=== PATIENT | female | born 1955 | race Caucasian/White ===

== ENCOUNTER → 2017-06-22 13:02 | Outpatient (CLI) | payer MEDICARE, OTHER ==
[2013-04-12 12:29] VITALS: BMI 51.7
[~2017-06-22 13:02] MED LIST: ADVAIR 500/501 DISK; ASPIRIN 81 MG E81 MG; BYDUREON; ELAVIL10 MG; GLIMEPIRIDE1 MG PO; KOMBIGLYZE XR1 EAC1; LASIX40 MG; MICRO-K10 MEQ; MOTRIN800 MG; RYTHMOL225 MG; ULTRAM50 MG; ZOCOR40 MG
== END | disposition home or self-care (01) ==
LOC: D.MAMMO 11:45
DX: Z12.31 Encounter for screening mammogram for malignant neoplasm of breast (principal)

== ENCOUNTER → 2017-12-16 10:13 | Outpatient (CLI) | payer MEDICARE, OTHER ==
[2013-04-12 12:29] VITALS: BMI 51.7
== END | disposition home or self-care (01) ==
LOC: D.LAB 10:13 → D.RAD 10:45 → D.RT 11:00
DX: J44.9 Chronic obstructive pulmonary disease, unspecified (principal); R06.09 Other forms of dyspnea

== ENCOUNTER → 2018-02-27 08:07 | Outpatient (CLI) | payer MEDICARE, OTHER ==
[2013-04-12 12:29] VITALS: BMI 51.7
[2018-02-27 09:06] LABS: CREATININE - SERUM 1.2 mg/dL (0.6-1.3)
[2018-02-28 11:19] LABS: ANA REFLEX - DIRECT Negative (Negative)
== END | disposition home or self-care (01) ==
LOC: D.CT 08:07
PROVIDERS: Internal Medicine Pulmonary Disease
DX: J84.9 Interstitial pulmonary disease, unspecified (principal)

== ENCOUNTER → 2018-08-24 18:04 | Outpatient (CLI) | payer MEDICARE, OTHER ==
[2013-04-12 12:29] VITALS: BMI 51.7
== END | disposition home or self-care (01) ==
LOC: D.MAMMO 15:45
DX: Z12.31 Encounter for screening mammogram for malignant neoplasm of breast (principal)

== ENCOUNTER 2018-12-11 06:45 | Day surgery (SDC) | payer MEDICARE, OTHER ==
[2018-12-08 11:16] LABS: BASOPHILS 0.6 % (0-2); EOSINOPHILS 22.3 % (0-7); HEMOGLOBIN 13.7 g/dL (12-16); IMMATURE GRANULOCYTES 0.8 % (0-5); LYMPHOCYTES 12.4 % (15-50); MCH 31.4 pg (26.0-34.0); MCHC 33.4 g/dL (31.0-37.0); MEAN PLATELET VOLUME 9.8 fL (7.4-10.4); MONOCYTES 7.6 % (2-11); NEUTROPHILS 56.3 % (40-80); PLATELET COUNT 171 10x3/uL (130-400); RBC 4.36 10x6/uL (4.00-5.40); RDW 14.3 % (11.5-14.5); WBC 12.4 10x3/uL (4.8-10.8)
[~2018-12-11 06:45] MED LIST changes: +ALENDRONATE SOD40 MG PO; +AMITRIPTYLINE H50 MG PO; +ANORO ELLIPTA1 EACH INH; +ATROVENT HFA12.9 GM INH; +BYDUREON P2 MG/0.65 SC; +CALCIUM 600 +1 EAC3 PO; +GLYXAMBI 10 MG1 EACH PO
[2018-12-11 09:45] VITALS: BP 125/55; BMI 44.4
--- NOTE | 2018-12-14 19:19 | OP ---
PATIENT NAME: ANTONINA KRAFT MEDICAL RECORD: [id number] :51 LOCATION:D.OPS ADMISSION DATE: SURGEON: YAQUELIN THORPE MD DATE OF OPERATION: 12/11/2018 PREOPERATIVE DIAGNOSIS: Postmenopausal bleeding. POSTOPERATIVE DIAGNOSIS: Postmenopausal bleeding. PROCEDURE: Dilation and curettage. SURGEON: Yaquelin Thorpe MD ANESTHESIOLOGIST: Dr. Griffith. DATA ENTRY TECHNICIAN: Jin Freeman. ANESTHETIC: General. FINDINGS: Uterus sounds to 7.5 cm. Moderate amount of tissue returned at the time of curettage. Good cry obtained throughout. SPECIMEN REMOVED: Endometrial curettings. SPECIMEN DISPOSITION: Pathology. ESTIMATED BLOOD LOSS: Minimal. FLUIDS: 400 of lactated Ringer's. URINE OUTPUT: Quantity sufficient cath at the close of the procedure. COMPLICATIONS: None. DRAIN: None. INDICATIONS: The patient is a 63-year-old postmenopausal female with heavy vaginal bleeding. Ultrasound with a thickened endometrial stripe. The patient declines endometrial biopsy and requests D and C. DESCRIPTION OF PROCEDURE: After informed consent was assured, the patient was taken to the operating room where anesthetic was obtained. The patient was then prepped and draped in the usual sterile fashion. The cervix was grasped with a tenaculum and then serially dilated to accommodate a #2 curette. This was passed gently to the fundus and pressure applied again to the uterine wall as it is withdrawn. This is done throughout all 4 quadrants of the uterus with a good cry obtained. Specimen was placed on Telfa and sent to pathology. Sponge, lap, needle counts were correct times 2 as the single-tooth tenaculum was removed. Ring forceps applied to the tenaculum puncture sites will be removed upon transfer of the patient from the operative table to the [facility]. TRANSINT:[id number] Voice Confirmation ID: [id number] DOCUMENT ID: [id number] OPERATIVE REPORT [id number] ANTONINA KRAFT YAQUELIN THORPE MD at 1919 CC: [id number] DICTATION DATE: 12/11/18 1246 POULTRY BREEDER: 12/11/18 191 [facility] 12/11/18 [facility] [address] [place] [address]
== END 2018-12-11 15:17 | disposition home or self-care (01) ==
LOC: D.OPS 06:45
PROVIDERS: Obstetrics & Gynecology
DX: N95.0 Postmenopausal bleeding (principal); N84.0 Polyp of corpus uteri; Z01.812 Encounter for preprocedural laboratory examination

== ENCOUNTER → 2019-02-26 07:17 | Outpatient (CLI) | payer MEDICARE, OTHER | END | disposition home or self-care (01) | LOC: D.RT 07:17 | PROVIDERS: ATTEND Internal Medicine Pulmonary Disease | DX: J44.9 Chronic obstructive pulmonary disease, unspecified (principal) ==

== ENCOUNTER → 2021-01-12 11:02 | Outpatient (CLI) | payer MEDICARE, OTHER | END | disposition home or self-care (01) | LOC: D.LAB 11:02 | PROVIDERS: ATTEND Internal Medicine Pulmonary Disease | DX: J44.9 Chronic obstructive pulmonary disease, unspecified (principal) ==

== ENCOUNTER → 2021-01-16 10:44 | Outpatient (CLI) | payer MEDICARE, OTHER | END | disposition home or self-care (01) | LOC: D.RT 10:44 | PROVIDERS: ATTEND Internal Medicine Pulmonary Disease | DX: J44.9 Chronic obstructive pulmonary disease, unspecified (principal) ==

== ENCOUNTER → 2021-02-05 10:50 | Outpatient (CLI) | payer MEDICARE, OTHER ==
--- NOTE | 2021-02-06 09:24 | EC ---
PATIENT:ANTONINA KRAFT DATE OF SERVICE: 02/05/21 SEX: F MEDICAL RECORD: [id number] DATE OF : 51 LOCATION:D[facility] AGE OF PATIENT: 65 ADMISSION DATE: 02/05/21 REFERRING PHYSICIAN: INTERPRETING PHYSICIAN: FLORENCIO ORTEGA MD ECHOCARDIOGRAM REPORT ECHO CHARGES 4 ECHO COMPLETE Date: 02/05/21 CLINICAL DIAGNOSIS: HTN/AFIB/ASSESS EF AND LA SIZE ECHOCARDIOGRAPHIC MEASUREMENTS (adult normal given) AC root (d.<3.7cm) 3.6 cm LV Septum d (<1.2 cm> 1.5 cm Valve Excursion 1.5 cm LV Septum (systole) 1.8 cm Left Atria (s.<4.0cm> 4.3 cm LVPW d(<1.2cm) 1.5 cm RV (d.<2.3cm) 3.8 cm LVPW (sytole) 1.7 cm LV diastole(<5.6CM) 4.1 cm MV E-F(>70mm/sec) cm LV systole 2.7 cm LVOT Diameter 1.8 cm MV exc.(>10mm) 1.2 cm Est.ejection fraction (50-75%) % DOPPLER: LVIT cm/sec A 142.0cm/sec E 98.0 cm/sec LA cm/sec RVSP 31 mmHg LVOT 124 cm/sec AOP1/2T m/s Asc. Ao 180 cm/sec RVOT 108 cm/sec RA cm/sec PA 150 cm/sec AV Gradient Peak 12.97mmHg AV Mean 5.99 mmHg AV Area 2.2 cm MV Gradient Peak 9.14 mmHg MV Mean 3.95 mmHg MV Area cm COMMENTS: Printed Circuit Board Designer: 2 IGGY K[place] Securities Broker: 3 Dr. Moran TAPE# PACS Pericardial Effusion N DATE OF SERVICE: Adequate 2D, color flow imaging, spectral Doppler, and M-Mode. FINDINGS: LVH is present. LV internal dimensions are normal. Wall motion is normal. EF is greater than or equal to 55%. Aortic valve is sclerotic. No evidence of stenosis by Doppler interrogation. Left atrium is mildly dilated at 4.3 cm. Mitral valve is mildly thickened. Trace MR. Ride side is grossly normal. Trace TR. ECHOCARDIOGRAM REPORT [id number] ANTONINA KRAFT TRANSINT:[id number] Voice Confirmation ID: [id number] DOCUMENT ID: [id number] FLORENCIO ORTEGA MD at 0924 CC: [id number] DICTATION DATE: 02/05/211701 MASTER MERCHANDISER: 02/05/21 175 DEP CLI 02/05/21 [facility] [address] [facility], [facility]
== END | disposition home or self-care (01) ==
LOC: D.HCCECHO 10:50
PROVIDERS: ATTEND Internal Medicine Interventional Cardiology
DX: I10 Essential (primary) hypertension (principal)